=== PATIENT | female | born 1945 | race Two or more races ===

== ENCOUNTER 2017-05-20 11:00 | Emergency (ER) | payer MEDICARE, MEDICAID ==
[~2017-05-20] VITALS: Ht 147.3 cm; Wt 54.0 kg
[~2017-05-20 11:00] MED LIST: ANAS1TAB6 PO; GLIM4TAB42 PO; LEVO50TA7 PO; LOSA25TA9 PO; METF-370 PO; ROSU10TA16 PO
[2017-05-20 12:25] LABS: Basophils # (auto) 0 uL; Basophils % (auto) 0.4 % (0.0-2.0); Eosinophils # (auto) 0.2 uL; Eosinophils % (auto) 1.9 % (0.0-7.0); Hematocrit 39.9 % (36.0-46.0); Hemoglobin 13.6 g/dL (12.2-16.2); Lymphocytes # (auto) 2.6 uL; Lymphocytes % (auto) 26.8 % (10.0-50.0); Mean Corpuscular Hemoglobin 29.3 pg (28.0-32.0); Mean Corpuscular Hgb Conc. 34.1 g/dL (32.0-36.0); Mean Corpuscular Volume 86.1 fL (80.0-100.0); Monocytes # (auto) 0.5 uL; Monocytes % (auto) 5.5 % (0.0-12.0); Neutrophils # (auto) 6.2 uL; Neutrophils % (auto) 65.4 % (37.0-80.0); Nucleated Red Blood Cells % 0.1 %; Platelet Count (auto) 422 10^3/uL (140-450); Red Blood Cells 4.64 10^6/uL (4.0-5.20); Red Cell Distribution Width 13.1 % (11.8-14.3); White Blood Cell 9.5 10^3/uL (4.4-10.8)
[2017-05-20 12:38] LABS: BUN/Creatinine Ratio 16.7; Bilirubin, Total 0.4 mg/dL (0.2-1.0); Calcium 9.1 mg/dL (8.5-10.1); Potassium 3.6 mmol/L (3.5-5.1); Total Protein 8.6 g/dL (6.4-8.2)
[2017-05-21 00:30] VITALS: BP 142/82
== END 2017-05-21 00:45 | disposition home or self-care (01) ==
LOC: ER 11:00
DX: S49.92XA Unspecified injury of left shoulder and upper arm, initial encounter (principal); X58.XXXA Exposure to other specified factors, initial encounter; Y93.89 Activity, other specified; Y92.89 Other specified places as the place of occurrence of the external cause; Y99.8 Other external cause status; E11.9 Type 2 diabetes mellitus without complications; I10 Essential (primary) hypertension; E78.5 Hyperlipidemia, unspecified; Z88.0 Allergy status to penicillin; Z85.3 Personal history of malignant neoplasm of breast
CPT/HCPCS: 36415; 73030; 80053; 85025

== ENCOUNTER 2022-02-24 00:20 | Inpatient (IN) | payer MEDICARE, MEDICAID ==
[~2022-02-24] VITALS: Ht 149.9 cm; Wt 53.7 kg
[~2022-02-24 00:20] MED LIST changes: -ANAS1TAB6 PO; +ANAS1TAB7 PO; +LOSA25TA38 PO; -LOSA25TA9 PO
[2022-02-24 01:46] LABS: Basophils # (auto) 0 10 ^3/uL (0-0.2); Basophils % (auto) 0.4 % (0.0-2.0); Eosinophils # (auto) 0 10 ^3/uL (0-0.8); Eosinophils % (auto) 0.4 % (0.0-7.0); Hemoglobin 11.9 g/dL (12.2-16.2); Lymphocytes # (auto) 1.5 10 ^3/uL (0.4-5.4); Lymphocytes % (auto) 13.5 % (10.0-50.0); Mean Corpuscular Hemoglobin 29.1 pg (28.0-32.0); Mean Corpuscular Hgb Conc. 33.8 g/dL (32.0-36.0); Mean Corpuscular Volume 86.2 fL (80.0-100.0); Monocytes # (auto) 0.3 10 ^3/uL (0-1.3); Monocytes % (auto) 2.9 % (0.0-12.0); Neutrophils % (auto) 82.8 % (37.0-80.0); Nucleated Red Blood Cells % 0.1 %; Red Blood Cells 4.07 10^6/uL (4.0-5.20); Red Cell Distribution Width 12.7 % (11.8-14.3); White Blood Cell 10.8 10^3/uL (4.4-10.8)
[2022-02-24 03:29] LABS: Albumin 3.5 g/dL (3.4-5.0); Calcium 8.9 mg/dL (8.5-10.1); Potassium 3.1 mmol/L (3.5-5.1)
[2022-02-24 03:33] LABS: BUN/Creatinine Ratio 25.4; Bilirubin, Total 0.4 mg/dL (0.2-1.0); Total Protein 7.6 g/dL (6.4-8.2)
[2022-02-24 05:06] LABS: Urine Bacteria FEW /hpf (None Seen); Urine Blood Negative /uL (Negative); Urine Specific Gravity 1.014 (1.001-1.035); Urine WBC 2 /hpf (0 - 5)
[2022-02-24] MEDS ORDERED: ONDANSETRON HCL 4 MG/2 ML VIAL IV ONE (05:15)
[2022-02-24] MEDS ORDERED: POTASSIUM CHL 20 Meq TABLET PO ONE (05:45)
[2022-02-24] MEDS ORDERED: POTASSIUM CHL 20MEQ/100ML 100 ML IV ONE (05:45)
[2022-02-24] MEDS ORDERED: POTASSIUM EFFERVESENT TAB 25 MEQ PO ONE (06:15)
[2022-02-24] MEDS ORDERED: NITROGLYCERIN 0.4 MG SL TAB SL PRN (07:00)
[2022-02-24] MEDS ORDERED: ACETAMINOPHEN 325 MG TAB PO PRN (07:00)
[2022-02-24] MEDS ORDERED: DEXTROSE (50%) 50ML SYRG IV PRN (07:00)
[2022-02-24] MEDS ORDERED: ONDANSETRON HCL 4 MG/2 ML VIAL IV PRN (07:00)
[2022-02-24] MEDS ORDERED: MORPHINE SULFATE INJ 2 MG/ml SYRG IV PRN (07:00)
[2022-02-24] MEDS ORDERED: MECLIZINE HCL 25 MG TAB PO ONE (07:15)
[2022-02-24] MEDS ORDERED: SODIUM CHLORIDE 0.9% 1,000 ML IV SCH (07:15)
[2022-02-24] MEDS: LEVOTHYROXINE SODIUM 25 MCG TAB PO SCH (07:32)
[2022-02-24 07:41] LABS: Hematocrit 35.6 % (36.0-46.0); Hemoglobin 12.2 g/dL (12.2-16.2)
[2022-02-24] MEDS: PANTOPRAZOLE 40 MG TAB PO SCH (09:34)
[2022-02-24] MEDS: CLOPIDOGREL BISULFATE 75 MG TAB PO SCH (09:35)
[2022-02-24] MEDS: ASPirin 81 mg TAB PO SCH (09:35)
[2022-02-24] MEDS: FUROSEMIDE 20 MG TAB PO SCH (09:35)
[2022-02-24] MEDS: HCTZ 25 MG TAB PO SCH (09:36)
[2022-02-24] MEDS: POTASSIUM CHL 10 Meq TABLET PO SCH (09:37)
[2022-02-24] MEDS: dilTIAZem 120MG ER CAP PO SCH ×2 (09:38→09:43)
[2022-02-24] MEDS: LOSARTAN POTASSIUM 25 MG TAB PO SCH (09:46)
[2022-02-24] MEDS ORDERED: ENOXAPARIN SOD 40 MG/0.4 ML SYRINGE SC SCH (10:00)
[2022-02-24] MEDS: ACCU-CHEK COMFORT CURVE STRIP VI SCH ×2 (12:05→18:52)
[2022-02-24] MEDS: InsuLIN REG 1unit/0.01ml Soln (100units/ml) SC SCH ×2 (12:08→18:51)
[2022-02-24 16:42] LABS: Calcium 8.4 mg/dL (8.5-10.1); Potassium 3.2 mmol/L (3.5-5.1)
[2022-02-24 16:44] LABS: BUN/Creatinine Ratio 39.5
[2022-02-24] MEDS ORDERED: POTA10TA32 PO (17:54)
[2022-02-24] MEDS ORDERED: HYDR12.56 PO (17:54)
[2022-02-24] MEDS ORDERED: CLOP75TA70 PO (17:54)
[2022-02-24] MEDS ORDERED: FURO20TA3 PO (17:54)
[2022-02-24] MEDS ORDERED: LEVO75TA6 PO (17:54)
[2022-02-24] MEDS ORDERED: METF-929 PO (17:54)
[2022-02-24] MEDS ORDERED: DILT-14 PO (17:54)
[2022-02-24] MEDS ORDERED: ROSU1TAB12 PO (17:54)
[2022-02-24 20:00] VITALS: BP 127/62
[2022-02-24 22:00] VITALS: BP 127/62
[2022-02-24] MEDS ORDERED: ATORVASTATIN 20 MG TAB PO SCH (22:00)
[2022-02-24] MEDS: ENOXAPARIN SOD 60 MG/0.6 ML SYRINGE SC SCH (22:31)
[2022-02-25] MEDS: ACCU-CHEK COMFORT CURVE STRIP VI SCH ×3 (00:29→12:12)
[2022-02-25] MEDS: InsuLIN REG 1unit/0.01ml Soln (100units/ml) SC SCH ×3 (00:32→12:02)
[2022-02-25 05:00] VITALS: BP 131/58
[2022-02-25 05:37] LABS: Basophils # (auto) 0 10 ^3/uL (0-0.2); Basophils % (auto) 0.4 % (0.0-2.0); Eosinophils # (auto) 0.1 10 ^3/uL (0-0.8); Eosinophils % (auto) 0.8 % (0.0-7.0); Hematocrit 36.5 % (36.0-46.0); Hemoglobin 12.7 g/dL (12.2-16.2); Lymphocytes # (auto) 2.4 10 ^3/uL (0.4-5.4); Lymphocytes % (auto) 25.3 % (10.0-50.0); Mean Corpuscular Hemoglobin 29.9 pg (28.0-32.0); Mean Corpuscular Hgb Conc. 34.8 g/dL (32.0-36.0); Mean Corpuscular Volume 85.9 fL (80.0-100.0); Monocytes # (auto) 0.6 10 ^3/uL (0-1.3); Monocytes % (auto) 6.2 % (0.0-12.0); Neutrophils # (auto) 6.5 10 ^3/uL (1.6-8.6); Neutrophils % (auto) 67.3 % (37.0-80.0); Nucleated Red Blood Cells % 0.1 %; Red Blood Cells 4.25 10^6/uL (4.0-5.20); Red Cell Distribution Width 13.1 % (11.8-14.3); White Blood Cell 9.7 10^3/uL (4.4-10.8)
[2022-02-25 05:58] LABS: Calcium 8.5 mg/dL (8.5-10.1)
[2022-02-25] MEDS: LEVOTHYROXINE SODIUM 25 MCG TAB PO SCH (06:25)
[2022-02-25 08:00] VITALS: BP 138/62
[2022-02-25 09:00] VITALS: BP 138/62
[2022-02-25] MEDS: POTASSIUM CHL 10 Meq TABLET PO SCH (09:11)
[2022-02-25] MEDS: CLOPIDOGREL BISULFATE 75 MG TAB PO SCH (09:11)
[2022-02-25] MEDS: ENOXAPARIN SOD 60 MG/0.6 ML SYRINGE SC SCH (09:12)
[2022-02-25] MEDS: ASPirin 81 mg TAB PO SCH (09:12)
[2022-02-25] MEDS: PANTOPRAZOLE 40 MG TAB PO SCH (09:22)
[2022-02-25] MEDS: FUROSEMIDE 20 MG TAB PO SCH (09:23)
[2022-02-25] MEDS: dilTIAZem 120MG ER CAP PO SCH (09:24)
[2022-02-25] MEDS: HCTZ 25 MG TAB PO SCH (09:25)
[2022-02-25] MEDS: LOSARTAN POTASSIUM 25 MG TAB PO SCH (09:26)
[2022-02-25] MEDS ORDERED: POTASSIUM CHL 20 Meq TABLET PO ONE (10:45)
[2022-02-25] MEDS ORDERED: PANT40TA2 PO (10:58)
[2022-02-25 13:00] VITALS: BP 131/81
[2022-02-25 13:13] VITALS: BP 131/81
== END 2022-02-25 14:05 | disposition home or self-care (01) | DRG 392 ==
LOC: EDBD 00:20 → ER 00:22 → TELE 06:52 → TELE-EAST 16:17
PROVIDERS: ADMIT Nurse Practitioner; ATTEND Student in an Organized Health Care Education/Training Program
DX: A08.4 Viral intestinal infection, unspecified (principal); E78.5 Hyperlipidemia, unspecified; E87.6 Hypokalemia; E11.9 Type 2 diabetes mellitus without complications; I10 Essential (primary) hypertension; Z20.822 Contact with and (suspected) exposure to COVID-19; E03.9 Hypothyroidism, unspecified; I25.10 Atherosclerotic heart disease of native coronary artery without angina pectoris; Z82.0 Family history of epilepsy and other diseases of the nervous system; Z83.3 Family history of diabetes mellitus; Z90.710 Acquired absence of both cervix and uterus; Z95.0 Presence of cardiac pacemaker; Z85.3 Personal history of malignant neoplasm of breast; Z88.0 Allergy status to penicillin; Z90.11 Acquired absence of right breast and nipple; Z98.61 Coronary angioplasty status; Z79.84 Long term (current) use of oral hypoglycemic drugs
CPT/HCPCS: 36415; 70450; 71045; 71250; 74176; 80048; 80053; 81001; 82962; 83605; 83690; 83880; 84132; 84484; 85014; 85018; 85025; 93005; 93306; 96361; 96372; 96374; G0378; J1815; J2405; J3480